=== PATIENT | female | born 1975 | race Caucasian/White ===

== ENCOUNTER 2017-05-24 11:19 | Emergency (ER) | payer OTHER ==
[2017-05-24 11:20] VITALS: BP 121/89; PULSE 68; RESP 18; TEMP 99; O2SAT 100
[2017-05-24] MEDS ORDERED: KETOROLAC TROMETHAMINE 30 MG/ML (IVP) VIAL IV PUSH ONE (12:00)
[2017-05-24 12:07] LABS: AUTOMATED NEUTROPHIL # 2.8 TH/MM3 (1.8-7.7); BASOPHIL # 0.1 TH/MM3 (0-0.2); BASOPHIL % 1.5 % (0.0-2.0); EOSINOPHIL # 0.1 TH/MM3 (0-0.4); EOSINOPHIL % 1.8 % (0.0-4.0); HEMATOCRIT 29.5 % (35.0-46.0); HEMO FLAGS DIFF FINAL; LYMPH % 19.9 % (9.0-44.0); LYMPHOCYTE # 0.8 TH/MM3 (1.0-4.8); MEAN CELL VOLUME 65.8 FL (80.0-100.0); MEAN CORPUSCULAR HEMOGLOBIN 19.6 PG (27.0-34.0); MONO % 7.7 % (0.0-8.0); NEUT % 69.1 % (16.0-70.0); PLATELET COUNT 176 TH/MM3 (150-450); RED BLOOD COUNT 4.49 MIL/MM3 (4.00-5.30); RED CELL DISTRIBUTION WIDTH 18.6 % (11.6-17.2); WHITE BLOOD COUNT 4.1 TH/MM3 (4.0-11.0)
[2017-05-24 12:10] LABS: MEAN CORPUSCULAR HGB CONC 29.8 % (32.0-36.0)
[2017-05-24 12:26] LABS: ALT (GPT) 18 U/L (10-53); ANION GAP 5 MEQ/L (5-15); AST (GOT) 14 U/L (15-37); BICARBONATE 25.6 MEQ/L (21.0-32.0); BLOOD UREA NITROGEN 8 MG/DL (7-18); CHLORIDE 108 MEQ/L (98-107); GLOMERULAR FILTRATION RATE 101 ML/MIN (>89); POTASSIUM 3.8 MEQ/L (3.5-5.1); SODIUM (NA) 139 MEQ/L (136-145)
[2017-05-24 12:27] LABS: ALKALINE PHOSPHATASE 49 U/L (45-117); TOTAL BILIRUBIN ADULT 0.5 MG/DL (0.2-1.0)
--- NOTE | 2017-05-24 12:48 | RADRPT ---
EXAM DATE/TIME: 05/24/2017 12:03 [place] COMPARISON: No previous studies available for comparison. INDICATIONS : Pelvic mass. MEDICAL HISTORY : Renal failure. SURGICAL HISTORY : section. D&C. ENCOUNTER: Initial ACUITY: > 1 year PAIN SCORE: 4/10 LOCATION: Bilateral pelvis MEASUREMENTS: UTERUS: 17.5 x 8.8 x cm ENDOMETRIAL STRIPE: 8 mm RIGHT OVARY: 2.9 x 2.5 x 3.4 cm LEFT OVARY: 3.1 x 0.9 x 3.5 cm FINDINGS: UTERUS: Uterus is markedly enlarged and contains multiple lobular hypoechoic non-shadowing masses, characteri stic of multiple fibroids. The 3 largest measure 7.6 8.5 cm 6.9 x 5.3 cm, and 9.9 x 8.9 cm. The endom etrial stripe is not well seen, but there is a mild amount of fluid fluid seen within the lower uteri ne segment endometrium/endometrial canal region. RIGHT OVARY: Ovary contains no mass or significant cystic lesion. LEFT OVARY: Ovary contains no mass or significant cystic lesion. MISCELLANEOUS: No free fluid. CONCLUSION: Multiple large uterine masses measuring up to 9.9 cm. Endometrium is not well-seen due to these ruperto s, but there is evidence of fluid within the lower uterine segment endometrial canal or endocervical canal Tommy Broderick MD on May 24, 2017 at 12:43 Board Certified Radiologist. This report was verified electronically.
--- NOTE | 2017-05-24 13:03 | PD ---
HPI Chief Complaint: Abdominal Pain Time Seen by Provider: 11:30 Travel History International Travel<30 days: No Contact w/Intl Traveler<30days: No Traveled to known affect area: No History of Present Illness HPI This is a 41-year-old female who presents to the emergency department with heavy vaginal bleeding clots that started at 2 AM, using a pad every 2-3 hours, associated with abdominal discomfort feeling like she is going to push something out of her vagina, moderate severity, with no lightheadedness or dizziness. She says she's felt a mass in her abdomen for over a year but today it is quite painful. PFSH Past Medical History Renal Failure: Yes (2007-RESOLVED) ?: Unknown Dilation and Curettage (D&C): Yes Past Surgical History Section: Yes (x3) Social History Alcohol Use: No Tobacco Use: No Substance Use: No Allergies-Medications (Allergen,Severity, Reaction): Coded Allergies: No Known Allergies (Unverified , 05/24/17) Reported Meds & Prescriptions Reported Meds & Active Scripts Active No Active Prescriptions or Reported Medications Review of Systems Except as stated in HPI: all other systems reviewed are Neg Physical Exam Narrative GENERAL:Well appearing, no acute distress SKIN: Focused skin assessment warm and dry. HEAD: Atraumatic. Normocephalic. EYES: Pupils equal and round. No injection or drainage. ENT: Moist mucous membranes NECK: Trachea midline. CARDIOVASCULAR: Regular rate and rhythm. No murmur appreciated. RESPIRATORY: Clear to auscultation. Breath sounds equal bilaterally. 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 NEUROLOGICAL: Awake and alert. No obvious cranial nerve deficits. Moving all extremities. PSYCHIATRIC: Appropriate mood and affect; insight and judgment normal. Data Data Last Documented VS Vital Signs Date Time Temp Pulse Resp B/P (MAP) Pulse Ox O2 Delivery O2 Flow Rate FiO2 05/24/17 11:20 99.0 68 18 121/89 (100) 100 Orders Orders Complete Blood Count With Diff (05/24/17 11:45) Comprehensive Metabolic Panel (05/24/17 11:45) Ed Urine Pregnancytest Poc (05/24/17 11:45) Us Pelvis Comp W Doppler (05/24/17 ) Ketorolac Inj (Toradol Inj) (05/24/17 12:00) Labs Laboratory Tests Test 05/24/17 11:55 White Blood Count 4.1 TH/MM3 Red Blood Count 4.49 MIL/MM3 Hemoglobin 8.8 GM/DL Hematocrit 29.5 % Mean Corpuscular Volume 65.8 FL Mean Corpuscular Hemoglobin 19.6 PG Mean Corpuscular Hemoglobin Concent 29.8 % Red Cell Distribution Width 18.6 % Platelet Count 176 TH/MM3 Mean Platelet Volume 8.9 FL Neutrophils (%) (Auto) 69.1 % Lymphocytes (%) (Auto) 19.9 % Monocytes (%) (Auto) 7.7 % Eosinophils (%) (Auto) 1.8 % Basophils (%) (Auto) 1.5 % Neutrophils # (Auto) 2.8 TH/MM3 Lymphocytes # (Auto) 0.8 TH/MM3 Monocytes # (Auto) 0.3 TH/MM3 Eosinophils # (Auto) 0.1 TH/MM3 Basophils # (Auto) 0.1 TH/MM3 CBC Comment DIFF FINAL Differential Comment Blood Urea Nitrogen 8 MG/DL Creatinine 0.64 MG/DL Random Glucose 88 MG/DL Total Protein 6.9 GM/DL Albumin 3.7 GM/DL Calcium Level 8.5 MG/DL Alkaline Phosphatase 49 U/L Aspartate Amino Transf (AST/SGOT) 14 U/L Alanine Aminotransferase (ALT/SGPT) 18 U/L Total Bilirubin 0.5 MG/DL Sodium Level 139 MEQ/L Potassium Level 3.8 MEQ/L Chloride Level 108 MEQ/L Carbon Dioxide Level 25.6 MEQ/L Anion Gap 5 MEQ/L Estimat Glomerular Filtration Rate 101 ML/MIN [facility] Medical Decision Making Medical Screen Exam Complete: Yes Emergency Medical Condition: Yes Interpretation(s) afebrile, no tachycardia, normotensive microcytic anemia electrolyes within normal limits Last 24 hours Impressions Pelvis Ultrasound 05/24/17 0000 Signed Impressions: Service Date/Time: Wednesday, May 24, 2017 12:03 - CONCLUSION: Multiple large uterine masses measuring up to 9.9 cm. Endometrium is not well-seen due to these masses, but there is evidence of fluid within the lower uterine segment endometrial canal or endocervical canal Tommy Broderick MD Differential Diagnosis Fibroid tumors, cancer, anemia Narrative Course This Is a 41-year-old female who presents to the emergency department with vaginal bleeding since this morning. She's had masses in her abdomen that she' s felt for more than a year. Here in the emergency department she is not tachycardic. She has a hemoglobin of 8.8 and she is microcytic suggesting chronic anemia. Pelvic exam demonstrates obvious mass in the uterus with some mild vaginal bleeding but nothing concerning for an acute life-threatening bleed. Ultrasound was performed which demonstrates multiple uterine masses. I discussed with the patient that it's possible that these are fibroids but certainly malignancy is on the differential. I expressed to her the urgency of follow-up. She is from [place] so unfortunately would not be a candidate for [facility]. She does have a clinic that she follows with their. I gave her a printout of her ultrasound and advised her to go there for follow- up. She will also be prescribed iron and naproxen. I asked her that if she continues to bleed or feels lightheaded or dizzy to come back to the emergency department to be reevaluated. Diagnosis Primary Impression: Uterine mass Patient Instructions: General Instructions Additional Instructions: You have multiple masses on your uterus. It's very important that you have this followed up by a estate planner as it could be benign or could be cancer. Return to the emergency department if you: Need to use both tampons and pads at the same time because you are bleeding so much Need to change your pad or tampon during the night Or are feeling lightheaded, weak, dizzy, have chest pain, shortness of breath or are having difficulty exerting yourself Med/Other Pt SpecificInfo: Prescription(s) given Scripts Ferrous Sulfate (Ferrous Sulfate) 325 Mg (65 Mg Iron) Tablet 325 MG PO TIDPC for Nutritional Supplement, #90 TAB 0 Refills Prov: Malou Goldberg MD 05/24/17 Naproxen (Naproxen) 500 Mg Tab 500 MG PO BID Y for PAIN SCALE 4 TO 10, #30 TAB 0 Refills Prov: Malou Goldberg MD 05/24/17 Disposition: 01 DISCHARGE HOME Condition: Stable Malou Goldberg MD May 24, 2017 13:03
[2017-05-24] MEDS ORDERED: FERR325T18 PO (13:22)
[2017-05-24] MEDS ORDERED: NAPR500T2 PO (13:22)
== END 2017-05-24 13:45 | disposition home or self-care (01) ==
LOC: NEPD 11:19
DX: N85.2 Hypertrophy of uterus (principal); D50.9 Iron deficiency anemia, unspecified; N93.9 Abnormal uterine and vaginal bleeding, unspecified; R19.00 Intra-abdominal and pelvic swelling, mass and lump, unspecified site
CPT/HCPCS: 76856; 80053; 84703; 85025; 93975; 96374; 99285; J1885